=== PATIENT | female | born 1970 | race Caucasian/White ===

== ENCOUNTER → 2016-04-27 | Outpatient (CLI) | payer OTHER ==
[~2016-04-27] MED LIST: BCPILLS PO; IBUP1CAP9 PO
== END | disposition home or self-care (01) ==
LOC: C.PAPS 09:22
PROVIDERS: ATTEND Physician Assistant
DX: Z12.4 Encounter for screening for malignant neoplasm of cervix (principal)

== ENCOUNTER → 2016-08-16 | Outpatient (CLI) | payer OTHER ==
[2016-08-16 12:38] LABS: BASO % 0.3 %; BASO ABS # 0.03 K/uL (0-0.2); COMPLETE YES; EOS % 0.9 %; HEMATOCRIT 36.2 % (37-47); IG% 0.2 %; LYMPH % 30.3 %; LYMPH ABS # 2.98 K/uL (1.2-3.4); MEAN CELL VOLUME 94.8 fL (80-100); MEAN CORPUSCULAR HEMOGLOBIN 33.5 pg (25-34); MEAN CORPUSCULAR HGB CONC 35.4 g/dl (32-36); MEAN PLATELET VOLUME 11.1 fL (7.4-10.4); MONO % 7.1 %; NEUT % 61.2 %; PLATELET COUNT 233 K/uL (130-400); RED BLOOD COUNT 3.82 M/uL (4.2-5.4); WHITE BLOOD COUNT 9.84 K/uL (4.8-10.8)
[2016-08-16 13:01] LABS: ALB/GLOB RATIO 0.9 (0.9-2); ALKALINE PHOSPHATASE 48 U/L (45-117); ALT/SGPT 23 U/L (12-78); AST/SGOT 15 U/L (15-37); BLOOD UREA NITROGEN 13 mg/dl (7-18); BUN/CREATININE RATIO 13.8 (10-20); CALCIUM 8.6 mg/dl (8.5-10.1); CARBON DIOXIDE 24 mmol/L (21-32); CHLORIDE 105 mmol/L (98-107); CREATININE 0.96 mg/dl (0.60-1.20); GLUCOSE 74 mg/dl (70-99); HDL CHOLESTEROL 82 mg/dl; POTASSIUM 4.4 mmol/L (3.5-5.1); SODIUM 139 mmol/L (136-145)
[2016-08-16 13:02] LABS: CHOLESTEROL 226 mg/dl (0-200); CHOLESTEROL/HDL RATIO 2.8; LDL CHOLESTEROL CALCULATED 114 mg/dl; TRIGLYCERIDES 148 mg/dl (0-150); VERY LOW DENSITY LIPOPROT CALC 30 mg/dl
== END ==
LOC: C.LABBFT 10:17
PROVIDERS: ATTEND Physician Assistant Medical
DX: Z00.00 Encounter for general adult medical examination without abnormal findings (principal)

== ENCOUNTER → 2017-04-11 | Outpatient (CLI) | payer OTHER ==
--- NOTE | 2017-04-11 16:37 | DIAGNOSTIC IMAGING REPORT ---
CHEST 2 VIEWS ROUTINE CLINICAL HISTORY: 46 years-old Female presenting with R05 [id number], chronic. TECHNIQUE: PA and lateral views of the chest were obtained. COMPARISON: None. FINDINGS: Cardiomediastinal silhouette normal. Lungs and pleural spaces clear. Osseous structures normal. Upper abdomen normal. IMPRESSION: 1. No acute cardiopulmonary disease. Electronically signed by: Nahum Gan M.D. 04/11/2017 4:35 PM Dictated Date/Time: 04/11/2017 4:35 PM
[2017-04-11 16:46] LABS: BASO % 0.2 %; BASO ABS # 0.02 K/uL (0-0.2); HEMATOCRIT 34.9 % (37-47); HEMOGLOBIN 12.7 g/dL (12.0-16.0); IG# 0.01 K/uL (0.00-0.02); LYMPH % 32.2 %; LYMPH ABS # 3.25 K/uL (1.2-3.4); MEAN CELL VOLUME 95.9 fL (80-100); MEAN CORPUSCULAR HEMOGLOBIN 34.9 pg (25-34); MEAN CORPUSCULAR HGB CONC 36.4 g/dl (32-36); MEAN PLATELET VOLUME 10.6 fL (7.4-10.4); MONO ABS # 0.61 K/uL (0.11-0.59); NEUT % 60.5 %; PLATELET COUNT 283 K/uL (130-400); RED CELL DISTRIBUTION WIDTH CV 12.1 % (11.5-14.5); RED CELL DISTRIBUTION WIDTH SD 42.8 fL (36.4-46.3); WHITE BLOOD COUNT 10.09 K/uL (4.8-10.8)
[2017-04-11 17:06] LABS: ALBUMIN 3.3 gm/dl (3.4-5.0); ALT/SGPT 23 U/L (12-78); BLOOD UREA NITROGEN 15 mg/dl (7-18); CARBON DIOXIDE 29 mmol/L (21-32); CREATININE 0.89 mg/dl (0.60-1.20); GLUCOSE 96 mg/dl (70-99); POTASSIUM 3.9 mmol/L (3.5-5.1); SODIUM 137 mmol/L (136-145)
[2017-04-11 17:09] LABS: ALKALINE PHOSPHATASE 63 U/L (45-117); AST/SGOT 16 U/L (15-37); TOTAL PROTEIN 7.5 gm/dl (6.4-8.2)
== END | disposition home or self-care (01) ==
LOC: C.LAB1850 15:45
PROVIDERS: ATTEND Internal Medicine
DX: R59.0 Localized enlarged lymph nodes (principal); R05 Cough

== ENCOUNTER → 2017-05-22 | Outpatient (CLI) | payer OTHER | END | disposition home or self-care (01) | LOC: C.PAPS 13:26 | PROVIDERS: ATTEND Physician Assistant | DX: Z12.4 Encounter for screening for malignant neoplasm of cervix (principal) ==

== ENCOUNTER → 2017-08-28 | Outpatient (CLI) | payer OTHER ==
[~2017-08-28] MED LIST changes: +ACYC-57 PO; +CHOL1000 PO; -IBUP1CAP9 PO; +IBUP200C80 PO; +LYSI100010 PO; +MAGN200T3 PO; +OMEGCAP2 PO; +PROTEIN POWDER PO
[2017-08-28 12:58] LABS: BASO % 0.2 %; BASO ABS # 0.02 K/uL (0-0.2); EOS % 0.3 %; EOS ABS # 0.03 K/uL (0-0.5); HEMATOCRIT 34.2 % (37-47); IG# 0.02 K/uL (0.00-0.02); LYMPH % 34.5 %; LYMPH ABS # 3.27 K/uL (1.2-3.4); MEAN CELL VOLUME 94.7 fL (80-100); MEAN CORPUSCULAR HEMOGLOBIN 33.2 pg (25-34); MEAN CORPUSCULAR HGB CONC 35.1 g/dl (32-36); MEAN PLATELET VOLUME 11.3 fL (7.4-10.4); MONO % 5.6 %; MONO ABS # 0.53 K/uL (0.11-0.59); NEUT % 59.2 %; NEUT ABS # 5.62 K/uL (1.4-6.5); PLATELET COUNT 228 K/uL (130-400); RED CELL DISTRIBUTION WIDTH SD 41.4 fL (36.4-46.3); WHITE BLOOD COUNT 9.49 K/uL (4.8-10.8)
[2017-08-28 14:04] LABS: ALBUMIN 3.3 gm/dl (3.4-5.0); ALKALINE PHOSPHATASE 42 U/L (45-117); ALT/SGPT 20 U/L (12-78); AST/SGOT 15 U/L (15-37); BLOOD UREA NITROGEN 12 mg/dl (7-18); CALCIUM 7.9 mg/dl (8.5-10.1); CARBON DIOXIDE 24 mmol/L (21-32); CHOLESTEROL 209 mg/dl (0-200); CREATININE 0.85 mg/dl (0.60-1.20); GLUCOSE 77 mg/dl (70-99); LDL CHOLESTEROL CALCULATED 92 mg/dl; POTASSIUM 3.9 mmol/L (3.5-5.1); SODIUM 135 mmol/L (136-145); TOTAL PROTEIN 6.7 gm/dl (6.4-8.2)
[2017-08-29 14:35] LABS: ANA SCREEN TC 249X NEGATIVE (NEGATIVE)
== END | disposition home or self-care (01) ==
LOC: C.LABBFT 10:37
PROVIDERS: ATTEND Physician Assistant Medical
DX: Z00.00 Encounter for general adult medical examination without abnormal findings (principal); R53.83 Other fatigue; L65.9 Nonscarring hair loss, unspecified

== ENCOUNTER → 2017-09-27 | Day surgery (SDC) | payer OTHER ==
[2017-08-29 08:21] VITALS: Ht 151.1 cm; Wt 41.8 kg
[~2017-09-27] VITALS: Ht 151.1 cm; Wt 41.8 kg
[~2017-09-27] MED LIST changes: +ATROPINE SULFATE 0.1 MG/ML 5ML SYR IV PRN; +BUPIVACAINE 0.5 % 5 MG/1 ML PF 10ML VIAL ONE; +DEXAMETHASONE SOD INJ 4 MG/ML VIAL ONE; +EpHEDrine SULFATE INJ 50 MG/ML AMP IV PRN; +FENTANYL CITRATE INJ 50 MCG/1 ML 2 ML VIAL IV PRN; +FENTANYL CITRATE INJ 50 MCG/1 ML 2 ML VIAL ONE; +GLYCOPYRROLATE INJ 0.2 MG/ML VIAL ONE; -IBUP200C80 PO; +IBUPROFEN 600 MG TAB PO PRN; +KETOROLAC TROMETHAMINE 30 MG/ML VIAL IV. PRN; +LACTATED RINGER'S 1000ML 1,000 ML IV SCH; +LIDOCAINE HCL 2% 2 ML VIAL (20MG/ML) ONE; +MIDAZOLAM HCL 1 MG/ML 2ML VIAL ONE; +MoRPHine SULFATE 2 MG/ML CARP IV PRN; +MoRPHine SULFATE 4 MG/ML 1 ML CARP\\VIAL IV PRN; +NEOSTIGMINE METHYLSULFATE 5 MG/5 ML SYR ONE; +ONDANSETRON INJ 2 MG/ML 2 ML VIAL IV PRN; +ONDANSETRON INJ 2 MG/ML 2 ML VIAL ONE; +OXYC-57 PO; +OXYCODONE/ACETAMINOPHEN 5-325 TAB PO PRN; +PROPOFOL IV EMULSION 10 MG/ML 20 ML VIAL ONE; +ROCURONIUM BROMIDE 10 MG/ML 5 ML VIAL ONE; +SODIUM CHLORIDE 0.9% 1000ML 1,000 ML IV SCH
--- NOTE | 2017-09-27 07:34 | History & Physical Bridge - [place] ---
H&P Re-Evaluation Bridge Note: I have examined the patient, reviewed the History & Physical and in the interval since the performance of the History & Physical I have noted the following changes of clinical significance: No changes noted
--- NOTE | 2017-09-27 08:33 | [facility] Post Operative Brief Note ---
Immediate Operative Summary Operative Date Sep 27, 2017. Pre-Operative Diagnosis Desires Sterilization Post-Operative Diagnosis same Procedure(s) Performed Laparoscopic Bilateral Salpingectomy Surgeon Dr. Ricco Ho Sql Server Architect Surgeon(s) Fabien Chaves MD Estimated Blood Loss 0 Findings Consistent with Post-Op Diagnosis Fluids (cc crystalloids) 900cc Specimens A. Right Fallopian Tube B. Left Fallopian Tube Drains None Anesthesia Type General Complication(s) none Disposition Accompanied Pt To Recover: no Disposition: Recovery Room / PACU
--- NOTE | 2017-09-27 08:36 | Discharge Instructions ---
Discharge Instructions Date of Service Sep 27, 2017. Visit Reason for Visit: Request For Sterilization Discharge Discharge Diagnosis / Problem: removal of bilateral tubes Discharge Goals Goal(s): Specific goals Activity Recommendations Activity Limitations: per Instructions/Follow-up section Anesthesia . Post Anesthesia Instructions: If you have had General Anesthesia or IV Sedation: * Do not drive today. * Resume driving when surgeon permits. * Do not make important decisions or sign legal documents today. * Call surgeon for: 1. Temperature elevations greater than 101 degrees F. 2. Uncontrollable pain. 3. Excessive bleeding. 4. Persistent nausea and vomiting. 5. Medication intolerance (nausea, vomiting or rash). * For nausea and vomiting use only clear liquids such as: tea, soda, bouillon until nausea subsides, then gradually increase diet as tolerated. * If you have any concerns or questions, call your surgeon's office. If physician is unavailable and it is an emergency, call 911 or go to the nearest emergency room. . Instructions / Follow-Up Instructions / Follow-Up ACTIVITY RECOMMENDATIONS: * Rest the first 2-3 days. You should be back to your normal activity levels by day 3. * No heavy lifting for 2 weeks. * No intercourse, tampons or douching for 1-2 weeks. * You may shower the next day. * Do not drive anytime that you are taking narcotic pain medicines. RETURN TO SCHOOL/WORK: * May return to school or work after 2-3 days. DIET: Nausea may occur in the immediate post-operative period. If so, take clear liquids such as tea, bouillon, apple juice until all nausea has subsided, then resume usual diet. MEDICATIONS: Resume previous medications unless instructed otherwise by your surgeon. Ibuprofen 200mg 2-3 tablets every 4-6 hours as needed -- OR -- Aleve 2 tablets every 8-12 hours as needed for post-operative discomfort Medications are over the counter. Tylenol may be used if above medications are contraindicated or not preferred. Medication should be taken with food or milk. Do not take on an empty stomach. SPECIAL CARE INSTRUCTIONS: * Check temperature twice daily for one week. report any elevation over 101 degrees. * You may experience some vagina spotting and/or bleeding. This is normal for 1 -2 weeks and should not be heavier than a normal period. If it is unusual in amount, call your physician. * Post-operative discomfort may consist of a sore throat, a "bloated" feeling and pain in the shoulders. these are normal symptoms, which usually only last for 2-3 days. * Remove band-aids tomorrow and shower. There is no need to replace band-aids unless there is drainage or discomfort. FOLLOW UP VISIT: Call your doctor's office for a post-operative 2 week visit if not already scheduled. Diet Recommendations Recommended Home Diet: no limitations, resume previous diet Procedures Procedures Performed: Laparoscopic Bilateral Salpingectomy Pending Studies Studies pending at discharge: no Medical Emergencies . Who to Call and When: Medical Emergencies: If at any time you feel your situation is an emergency, please call 911 immediately. . Non-Emergent Contact Non-Emergency issues call your: [facility] Demonstration Agent . . "Provider Documentation" section prepared by Dary Ho. . [place] Drug Monitoring Program Search Results: patient reviewed within database, no issues identified
--- NOTE | 2017-09-27 09:15 | Anesthesia Progress Nt - [facility] ---
Anesthesia Post Op Note Date & Time Sep 27, 2017 at 09:14 Vital Signs Pain Intensity: 0 Vital Signs Past 12 Hours Date Time Temp Pulse Resp B/P (MAP) Pulse Ox O2 Delivery O2 Flow Rate FiO2 09/27/17 08:43 36.9 85 16 123/62 99 Mask 6 09/27/17 06:40 36.6 88 16 99/66 (77) 100 Room Air Notes Mental Status: alert / awake / arousable, participated in evaluation Pt Amnestic to Procedure: Yes Nausea / Vomiting: adequately controlled Pain: adequately controlled Airway Patency, RR, SpO2: stable & adequate BP & HR: stable & adequate Hydration State: stable & adequate Anesthetic Complications: no major complications apparent
[2017-09-27 09:35] VITALS: TEMP 36.5
[2017-09-27 09:59] VITALS: BP 107/66; PULSE 71; O2SAT 100
--- NOTE | 2017-09-27 10:57 | OPERATIVE REPORT ---
DATE OF OPERATION: 09/27/2017 PREOPERATIVE DIAGNOSIS: Desires permanent surgical sterilization. POSTOPERATIVE DIAGNOSIS: Desires permanent surgical sterilization. PROCEDURE: Laparoscopic bilateral salpingectomy. SURGEON: Dary Ho MD ENGINEERING LEADER: Jodie. ESTIMATED BLOOD LOSS: Zero. FLUIDS: 900 mL. URINE OUTPUT: Clear yellow urine drained from the bladder during the procedure. INDICATIONS: The patient is a 4, para 4 who desires permanent surgical sterilization. FINDINGS: Normal uterus, tubes, and ovaries were noted bilaterally. Normal liver edge and normal diaphragm. Appendix not visualized. COMPLICATIONS: None. DRAINS: None. DISPOSITION: To recovery room in stable condition. PROCEDURE IN DETAIL: The patient was taken to the operating room where she was identified verbally and by bracelet. She was placed in dorsal spine position where general anesthesia was induced without difficulty. She was then placed in dorsal lithotomy position in candy-cane stirrups. Her arms were carefully tucked at her sides and she was prepped and draped in a normal sterile fashion. Timeout was held, identifying correct patient, procedure, positioning. There was no need for preoperative antibiotics. Attention was turned to the vagina where a Fuentes catheter was placed into the bladder. A speculum was placed into the vagina. The anterior cervix was grasped with a single tooth tenaculum. The [employer] uterine manipulator was placed into the cervix to serve as a means of manipulation and the speculum was removed. Gloves were then changed. Attention was then turned to the abdomen where an infraumbilical incision was made with a knife. Veress needle was placed through this, opening pressure was 1 mmHg. The abdomen was insufflated with approximately 2-1/2 liters of carbon dioxide gas. An 11 mm optical trocar was placed through this with direct visualization. Then after the patient was placed into Trendelenburg and under direct visualization, two 5 mm trocars were placed in the right and left lower quadrants under direct visualization. Then, using the Harmonic scalpel, the tube first on the right and then on the left were excised and they were carefully pulled through the 5 mm ports and removed in their entirety. Hemostasis was noted to be excellent. The procedure was terminated. The trocars were removed under direct visualization. The gas was removed from the abdomen and the infraumbilical trocar was removed. The incisions were then closed with 4-0 Vicryl in a subcuticular fashion. The incisions were infiltrated with 0.5% Marcaine and treated with Dermabond. The instruments were removed from the vagina and hemostasis was noted to be excellent. All sponge, lap, and needle counts were correct x2. The patient tolerated the procedure well and was sent to the recovery room in stable condition. I attest to the content of the Intraoperative Record and any orders documented therein. Any exception s are noted below.
== END | disposition home or self-care (01) ==
LOC: X.SURG 06:16
PROVIDERS: ATTEND Obstetrics & Gynecology
DX: Z30.2 Encounter for sterilization (principal)